=== PATIENT | female | born 1975 | race Caucasian/White ===

== ENCOUNTER 2016-12-07 | Emergency (ER) | payer MEDICAID | END 2016-12-07 19:17 | disposition home or self-care (01) ==

== ENCOUNTER 2016-12-09 13:30 | Outpatient (CLI) | payer MEDICAID | END 2016-12-09 13:31 | disposition home or self-care (01) | DX: F90.9 Attention-deficit hyperactivity disorder, unspecified type (principal) ==

== ENCOUNTER 2017-11-03 08:00 | Outpatient (CLI) | payer MEDICAID | END 2017-11-03 08:01 | disposition home or self-care (01) | LOC: LAB.R 08:00 | PROVIDERS: ATTEND Nurse Practitioner Family | DX: F90.9 Attention-deficit hyperactivity disorder, unspecified type (principal) | CPT/HCPCS: 80307 ==